=== PATIENT | male | born 1930 | race Caucasian/White ===

== ENCOUNTER 2017-05-06 21:03 | Observation (INO) | payer OTHER, MEDICARE ==
[~2017-05-06] VITALS: Ht 177.8 cm; Wt 73.5 kg
[~2017-05-06 21:03] MED LIST: AZOR 5 MG-40 MG1 TAB PO; CLOPIDOGREL75 MG PO; ETHAMBUTOL HCL400 MG PO; FINASTERIDE5 MG PO; ISONIAZID300 MG PO; ISTALOL 2.5 ML2.5 ML OPH; LATANOPROST 2.2.5 ML OPH; LOVENOX 8080 MG/0.8 SC; METOPROLOL SUCC50 MG PO; PRADAXA150 MG PO; PYRAZINAMIDE 5500 MG PO; RIFAMPIN 300 MG PO; SPIRIVA 18 MCG18 MCG INH; Vitamin B6 PO; WARFARIN SOD5 MG PO; ZOCOR20 MG PO
--- NOTE | 2017-05-06 21:06 | ED SYNCOPE COMPLAINT ---
History of Present Illness General Chief Complaint: Syncope and Near-Syncope Stated Complaint: BIBA FOR NEAR-SYNCOPE Vital Signs & Intake/Output Vital Signs & Intake/Output Vital Signs Date Time Temp Pulse Resp B/P B/P Pulse O2 O2 Flow FiO2 Mean Ox Delivery Rate 05/06 2115 98.3 64 18 169/81 99 Room Air Allergies Coded Allergies: MDX - No Known Drug Allergies - Nkd (NO KNOWN DRUG ALLERGIES - NKDA) (01/26/15) Reconcile Medications AMLODIPINE BES/OLMESARTAN MED (Marjan 5-40 MG Tablet) 5 MG-40 MG TABLET 1 TAB PO DAILY HTN (Reported) DABIGATRAN ETEXILATE MESYLATE (Pradaxa) 150 MG CAPSULE 1 CAP PO DAILY ATRIAL FIBRILLATION (Reported) Latanoprost (Latanoprost 2.5 Ml) 0.005 % DROPS 1 GTT OPH DAILY GLAUCOMA ( Reported) Metoprolol Succinate 50 MG TAB.ER.24H 1.5 TAB PO DAILY HTN (Reported) Simvastatin (Zocor) 20 MG TAB 1 TAB PO DAILY CHOL (Reported) Timolol Maleate (Istalol 2.5 Ml) 0.5 % DROP.DAILY 1 GTT OPH DAILY GLAUCOMA ( Reported) Tiotropium [place] (Spiriva) 18 MCG CAP.W.DEV 1 CAP INH DAILY COPD (Reported) HPI: 86 yo gentleman felt syncopal in the car... couldn't drive. 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 History of MRSA: No History of VRE: No History of CDIFF: No Pneumonia Vaccine: 08/29/10 Influenza Vaccine: 08/29/14 Psychosocial History Who do you live with Patient/Self Services at Home None What is your primary language Peruvian Family History Family History, If Any: MOTHER FH: coronary artery disease FATHER FHx: myocardial infarction Relation not specified for: FH: inflammatory bowel disease FH: multiple myeloma Progress Plan of Care: Orders Procedure Date/time Status EKG 05/06 2108 Active XRY-PORTABLE CHEST XRAY 05/06 2107 Active TROPONIN LEVEL 05/06 2107 Active PARTIAL THROMBOPLASTIN TIME 05/06 2107 Active PROTHROMBIN TIME 05/06 2107 Active COMPREHENSIVE METABOLIC PANEL 05/06 2107 Active CBC WITHOUT DIFFERENTIAL 05/[address] HEAD WO IV CONTRAST 05/06 2107 Active Departure Departure Condition: Stable Referrals: ALMA OWEN DO (PCP/Family) Departure Forms: Customer Survey General Discharge Information
--- NOTE | 2017-05-06 21:15 | NUR ---
86 Y/O MALE BIBA FROM HOME FOR FEELING LIKE HE WAS GOING TO HAVE A SYNCOPAL EPISODE. PT DID NOT HAVE ANY SYCOPAL EPISODE AND STS HE DOES NOT HAVE ANY OTHR SYMPTOMS AND DENIES ANY CP, DIZZINESS OR SWEATS, JUST FEELS WEAK. ALEXANDER BURNETT AT BEDSIDE TO EVAL PT
--- NOTE | 2017-05-06 21:23 | ED CARDIAC/CP/PALPITATIONS ---
History of Present Illness General Chief Complaint: Syncope and Near-Syncope Stated Complaint: BIBA FOR NEAR-SYNCOPE Source: patient, family, EMS Exam Limitations: no limitations Reconcile Medications Amlodipine Bes/Olmesartan Med (Marjan 5-40 MG Tablet) 5 MG-40 MG TABLET 1 TAB PO DAILY HTN (Reported) Betaxolol HCl 0.5 % DROPS 1 DROP OP D GLAUCOMA (Reported) Dabigatran Etexilate Mesylate (Pradaxa 150 MG) 150 MG CAPSULE 1 CAP PO BID AFIB (Reported) Latanoprost 0.005 % DROPS 1 GTT OPH QPM GLAUCOMA (Reported) Metoprolol Succinate 100 MG TAB.ER.24H 1 TAB PO QPM HTN (Reported) Simvastatin (Simvastatin*) 20 MG TABLET 1 TAB PO QPM CHOLESTROL (Reported) Umeclidinium [place] (Incruse Ellipta) 62.5 MCG/ACTUATION BLST.W.DEV 1 PUFF PO D SOB (Reported) Triage Note: 86 Y/O MALE BIBA FROM HOME FOR FEELING LIKE HE WAS GOING TO HAVE A SYNCOPAL EPISODE. PT DID NOT HAVE ANY SYCOPAL EPISODE AND STS HE DOES NOT HAVE ANY OTHR SYMPTOMS AND DENIES ANY CP, DIZZINESS OR SWEATS, JUST FEELS WEAK. ALEXANDER BURNETT AT BEDSIDE TO [facility] PT Triage Nurses Notes Reviewed? yes Onset: Abrupt Duration: minute(s): Timing: single episode today Quality/Severity: moderate Activities at Onset: driving Prior Chest Pain/Card Workup: heart attack HPI: 86-year-old male with history of hypertension, CABG IN 1998, pacemaker placement in 2006, atrial fibrillation on Pradaxa presents to emergency department following a near syncopal episode. He states that today while driving he felt as though he may pass out suddenly and had to lime puller. He states that this lasted for about 10 minutes and gradually improved. His family member drove him the [place] at home and then he called an ambulance to be seen here. Presyncopal episode was not associated with lightheadedness, dizziness, visual changes, loss of vision, chest pain, dyspnea, diaphoresis. The patient sees railroad mechanic Dr. Gonzales, he was seen and evaluated last week for regular checkup which was within normal limits. The patient has had prior syncopal episodes, last occurrence about a year ago, at this times he had no prodromal symptoms. Patient states that for the past few days he has been feeling fatigue and weakness. He also has had myalgias for the past few weeks. The patient states that recently he had blood work with his primary care doctor which found borderline anemia and elevated kidney functions, is currently under further workup for these abnormal labs. (HORTENCIA FINK PA-C) Vital Signs & Intake/Output Vital Signs & Intake/Output ED Intake and Output 05/08 0000 05/07 1200 Intake Total Output Total Balance Patient 162 lb Weight Allergies Coded Allergies: No Known Allergies (05/07/17) (MARLENI TORRE,REGINA Lock) Past History Travel History Traveled to [place] past 21 day No Medical History Any Pertinent Medical History? 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 Yes (HORTENCIA FINK PA-C) Review of Systems Review of Systems Constitutional: Reports: see HPI. EENTM: Reports: no symptoms. Respiratory: Reports: no symptoms. Cardiovascular: Reports: see HPI. GI: Reports: no symptoms. Genitourinary: Reports: no symptoms. Musculoskeletal: Reports: see HPI. Skin: Reports: no symptoms. Neurological/Psychological: Reports: see HPI. Hematologic/Endocrine: Reports: no symptoms. Immunologic/Allergic: Reports: no symptoms. All Other Systems: Reviewed and Negative (HORTENCIA FINK PA-C) Physical Exam Physical Exam General Appearance: well developed/nourished, no apparent distress, alert, awake Head: atraumatic, normal appearance Eyes: Bilateral: normal appearance, EOMI. Ears, Nose, Throat: hearing grossly normal Neck: normal inspection, supple, full range of motion Respiratory: normal breath sounds, chest non-tender, no respiratory distress, lungs clear Cardiovascular: regular rate/rhythm Peripheral Pulses: 2+ radial (R), 2+ radial (L) Gastrointestinal: normal bowel sounds, soft, non-tender Back: normal inspection, normal range of motion Extremities: normal inspection, normal range of motion Neurologic/Psych: awake, alert, oriented x 3 Skin: intact, normal color, warm/dry Core Measures ACS in differential dx? Yes Severe Sepsis Present: No Septic Shock Present: No (DANAE PHILLIPS,HORTENCIA DE DIOS) Progress Differential Diagnosis: AMI, aortic dissection, atrial fibrillation, CHF/pulm edema, intracranial hemorrhage, pneumonia, pneumothorax, PSVT, pulmonary embolism, unstable angina, V-fib/V-Tach, electrolyte abnormality Diagnostic Imaging: Viewed by Me: CT Scan. Discussed w/RAD: CT Scan. Radiology Impression: PATIENT: JESUS MANUEL FARIAS PRESENT AGE: 86 PATIENT ACCOUNT NO: [id number] : 32 LOCATION: [facility] ORDERING PHYSICIAN: REGINA RAYGOZA MD SERVICE DATE: 05/06/17 EXAM TYPE: CAT - CT HEAD WO IV CONTRAST EXAMINATION: CT HEAD WITHOUT CONTRAST CLINICAL INFORMATION: Mental status change COMPARISON: None TECHNIQUE: Contiguous axial imaging was performed from the skull base to vertex without intravenous administration of contrast. DLP: 695 mGy-cm FINDINGS: There is no evidence of acute intracranial hemorrhage or territorial infarction. No abnormal mass effect or midline shift is seen. Monte to white matter differentiation is well preserved. No extra-axial fluid collections are identified. The ventricles are normal in size. There is no abnormal attenuation within the brain parenchyma. The osseous structures and soft tissues are normal. The mastoid air cells and visualized portions of the paranasal sinuses are well aerated. IMPRESSION: No acute intracranial pathology. DICTATED BY: SEAN NICHOLSON MD DATE/TIME DICTATED:07/15 CHAR PULLER:JOSÉ MIGUEL DATE/TIME TRANSCRIBED:05/06/172144 CONFIDENTIAL, DO NOT COPY WITHOUT APPROPRIATE AUTHORIZATION. <Electronically signed in Other Vendor System> SIGNED BY: SEAN NICHOLSON MD 05/06/172149 Initial ED EKG: atrial paced complexes, rate 62, left axis deviation, no ST elevation or depression Prior EKG: unchanged (DANAE PHILLIPS,HORTENCIA DE DIOS) Plan of Care: Orders Procedure Date/time Status Nothing by Mouth 05/07 B Active Saline Lock 05/[address] in observation 05/06 2335 Active Misc Message 05/06 2335 Active ED Holding Orders 05/06 2335 Active Vital Signs 05/06 2335 Active Code Status 05/06 2335 Active EKG 05/06 2108 Active TROPONIN LEVEL 05/06 2107 Complete PARTIAL THROMBOPLASTIN TIME 05/06 2107 Complete PROTHROMBIN TIME 05/06 2107 Complete COMPREHENSIVE METABOLIC PANEL 05/06 2107 Complete CBC WITHOUT DIFFERENTIAL 05/06 2107 Complete Laboratory Tests 05/06/172109: Anion Gap 12, Estimated GFR > 60, BUN/Creatinine Ratio 18.9, Glucose 101 H, Calcium 9.6, Total Bilirubin 0.4, AST 13 L, ALT 25, Alkaline Phosphatase 74, Troponin I < 0.01, Total Protein 7.0, Albumin 3.9, Globulin 3.1, Albumin/ Globulin Ratio 1.3, PT 14.3 H, INR 1.37 H, APTT 52 H, CBC w Diff NO MAN DIFF REQ, RBC 4.49 L, MCV 86.8, MCH 28.7, RDW 13.6, MPV 7.5, Gran % 58.9, Lymphocytes % 26.1, Monocytes % 11.8 H, Eosinophils % 2.7, Basophils % 0.5, Absolute Granulocytes 5.0, Absolute Lymphocytes 2.2, Absolute Monocytes 1.0 H, Absolute Eosinophils 0.2, Absolute Basophils 0, PUBS MCHC 33.1 First troponin is negative, EKG does not show signs of ischemia. Will obtain repeat labs and EKG to assess for possible cardiac event. Spoke with Dr. Gloria regarding patient. Patient will be admitted for observation given concerning history and present symptoms. Dr. Raygoza will speak with hospitalist regarding telemetry admission. Patient is requiring consistent telemetry monitoring, repeat labs, cardiology consult, premature discharge would be medically unsafe. (HORTENCIA FINK PA-C) Departure Departure Disposition: STILL A PATIENT Condition: Stable Clinical Impression Primary Impression: Pre-syncope Referrals: ALMA OWEN DO (PCP/Family) Departure Forms: Customer Survey General Discharge Information (HORTENCIA FINK PA-C) PA/HIRE CAR DRIVER Co-Sign Statement Statement: ED Attending supervision documentation- [x I saw and evaluated the patient. I have also reviewed all the pertinent lab results and diagnostic results. I agree with the findings and the plan of care as documented in the PA's/HIRE CAR DRIVER's documentation. [] I have reviewed the ED Record and agree with the PA's/HIRE CAR DRIVER's documentation. [] Additions or exceptions (if any) to the PAs/HIRE CAR DRIVER's note and plan are summarized below: [] (MARLENI TORRE,REGINA Lock) Critical Care Note Critical Care Note Critical Care Time: non-applicable (DANAE PHILLIPS,HORTENCIA DE DIOS) (Tylenol) Acetaminophen/ 1 TAB Q6 PRN 05/07 0015 AC Hydrocodone Bitart (Vicodin) Oxycodone/ 2 TAB Q6P PRN 05/07 0015 AC Acetaminophen (Percocet) Laboratory Tests 05/06/17 2110: Anion Gap 12, Estimated GFR > 60, BUN/Creatinine Ratio 18.9, Glucose 101 H, Calcium 9.6, Phosphorus 2.9, Magnesium 2.1, Total Bilirubin 0.4, AST 13 L, ALT 25, Alkaline Phosphatase 74, Troponin I < 0.01, Total Protein 7.0, Albumin 3.9, Globulin 3.1, Albumin/Globulin Ratio 1.3, TSH 1.960, PT 14.3 H, INR 1.37 H, APTT 52 H, CBC w Diff NO MAN DIFF REQ, RBC 4.49 L, MCV 86.8, MCH 28.7, RDW 13.6, MPV 7.5, Gran % 58.9, Lymphocytes % 26.1, Monocytes % 11.8 H, Eosinophils % 2.7, Basophils % 0.5, Absolute Granulocytes 5.0, Absolute Lymphocytes 2.2, Absolute Monocytes 1.0 H, Absolute Eosinophils 0.2, Absolute Basophils 0, PUBS MCHC 33.1 First troponin is negative, EKG does not show signs of ischemia. Spoke with Dr. Gloria regarding patient. Patient will be admitted for observation given concerning history and present symptoms. Dr. Raygoza will speak with hospitalist regarding telemetry admission. (HORTENCIA FINK PA-C) Diagnostic Imaging: Viewed by Me: CT Scan. Discussed w/RAD: CT Scan. Radiology Impression: PATIENT: JESUS MANUEL FARIAS PRESENT AGE: 86 PATIENT ACCOUNT NO: [id number] : 32 LOCATION: [facility] ORDERING PHYSICIAN: REGINA RAYGOZA MD SERVICE DATE: 05/06/17 EXAM TYPE: CAT - CT HEAD WO IV CONTRAST EXAMINATION: CT HEAD WITHOUT CONTRAST CLINICAL INFORMATION: Mental status change COMPARISON: None TECHNIQUE: Contiguous axial imaging was performed from the skull base to vertex without intravenous administration of contrast. DLP: 695 mGy-cm FINDINGS: There is no evidence of acute intracranial hemorrhage or territorial infarction. No abnormal mass effect or midline shift is seen. Monte to white matter differentiation is well preserved. No extra-axial fluid collections are identified. The ventricles are normal in size. There is no abnormal attenuation within the brain parenchyma. The osseous structures and soft tissues are normal. The mastoid air cells and visualized portions of the paranasal sinuses are well aerated. IMPRESSION: No acute intracranial pathology. DICTATED BY: SEAN NICHOLSON MD DATE/TIME DICTATED:07/15 CHAR PULLER:JOSÉ MIGUEL DATE/TIME TRANSCRIBED:05/06/172144 CONFIDENTIAL, DO NOT COPY WITHOUT APPROPRIATE AUTHORIZATION. <Electronically signed in Other Vendor System> SIGNED BY: SEAN NICHOLSON MD 05/06/172149 Initial ED EKG: atrial paced complexes, rate 62, left axis deviation, no ST elevation or depression Prior EKG: unchanged (HORTENCIA FINK PA-C) Departure Departure Disposition: STILL A PATIENT Condition: Stable Clinical Impression Primary Impression: Pre-syncope Referrals: ALMA OWEN DO (PCP/Family) Departure Forms: Customer Survey General Discharge Information (HORTENCIA FINK PA-C) PA/HIRE CAR DRIVER Co-Sign Statement Statement: ED Attending supervision documentation- [x I saw and evaluated the patient. I have also reviewed all the pertinent lab results and diagnostic results. I agree with the findings and the plan of care as documented in the PA's/HIRE CAR DRIVER's documentation. [] I have reviewed the ED Record and agree with the PA's/HIRE CAR DRIVER's documentation. [] Additions or exceptions (if any) to the PAs/HIRE CAR DRIVER's note and plan are summarized below: [] (MARLENI TORRE,REGINA Lock) Critical Care Note Critical Care Note Critical Care Time: non-applicable (HORTENCIA FINK PA-C)
[2017-05-06] MEDS ORDERED: PRADAXA150 M1 PO (21:25)
[2017-05-06] MEDS ORDERED: INCRUSE ELLI62.5 MCG PO (21:25)
[2017-05-06] MEDS ORDERED: AZOR 5-40 MG T1 EACH PO (21:26)
[2017-05-06] MEDS ORDERED: TIMOLOL MALEATE5 M4 OPH (21:26)
[2017-05-06] MEDS ORDERED: METOPROLOL SUC100 M2 PO (21:27)
[2017-05-06] MEDS ORDERED: SIMVASTATIN20 M2 PO (21:27)
[2017-05-06] MEDS ORDERED: LATANOPROST2.5 ML OPH (21:28)
[2017-05-06] MEDS ORDERED: BETAXOLOL HCL5 ML OP (21:29)
[2017-05-06 21:30] LABS: ABSOLUTE BASOPHIL COUNT 0 /CUMM (0.0-0.2); ABSOLUTE EOSINOPHIL COUNT 0.2 /CUMM (0.0-0.7); ABSOLUTE LYMPH COUNT 2.2 /CUMM (1.2-3.4); BASOPHIL % 0.5 % (0.0-2.0); EOSINOPHIL % 2.7 % (0-5); GRANULOCYTE % 58.9 % (42.2-75.2); MEAN CORPUSCULAR HGB 28.7 PG (27.0-31.0); MEAN CORPUSCULAR HGB CONC 33.1 G/DL (33.0-37.0); MEAN CORPUSCULAR VOLUME 86.8 FL (80.0-94.0); MEAN PLATELET VOLUME 7.5 FL (7.4-10.4); PLATELET COUNT 315 /CUMM (130-400); RBC DISTRIBUTION WIDTH 13.6 % (11.5-14.5); RED BLOOD CELL CT 4.49 /CUMM (4.70-6.10); WHITE BLOOD CELL COUNT 8.5 /CUMM (4.8-10.8)
--- NOTE | 2017-05-06 21:30 | NUR ---
PT LEFT FOR CAT SCAN
[2017-05-06 21:44] LABS: PT 14.3 SEC (9.4-12.5); PTT 52 SEC (25-37)
--- NOTE | 2017-05-06 21:50 | CT SCAN REPORT ---
EXAMINATION: CT HEAD WITHOUT CONTRAST CLINICAL INFORMATION: Mental status change COMPARISON: None TECHNIQUE: Contiguous axial imaging was performed from the skull base to vertex without intravenous administration of contrast. DLP: 695 mGy-cm FINDINGS: There is no evidence of acute intracranial hemorrhage or territorial infarction. No abnormal mass effect or midline shift is seen. Monte to white matter differentiation is well preserved. No extra-axial fluid collections are identified. The ventricles are normal in size. There is no abnormal attenuation within the brain parenchyma. The osseous structures and soft tissues are normal. The mastoid air cells and visualized portions of the paranasal sinuses are well aerated. IMPRESSION: No acute intracranial pathology.
--- NOTE | 2017-05-06 22:22 | RADIOLOGY REPORT ---
EXAMINATION: XR PORTABLE CHEST CLINICAL INFORMATION: Syncope COMPARISON: 02/20/2017 TECHNIQUE: Portable frontal view of the chest was obtained. FINDINGS: Dual chamber pacer device grossly intact. Evidence of previous cardiac surgery. No CHF. Heart size normal. Chronic changes right upper lobe appears similar consistent with sequela of old granulomatous disease. Appearance is similar to baseline going back to 2013. No acute superimposed process. IMPRESSION: No active chest disease.
--- NOTE | 2017-05-06 23:30 | NUR ---
DR HICKEY BEDSIDE FOR PT EVAL
--- NOTE | 2017-05-06 23:42 | NUR ---
JESUS MANUEL FARIAS Nurse Note by: ELMO KIRAN I agree with the OUTSIDE SALES MANAGER findings/evaluation of this patient's condition. Entered by: ELMO KIRAN Date: 05/06/17 Time: 9800
--- NOTE | 2017-05-07 00:32 | NUR ---
HOUSE STAFF AT BEDSIDE TO EVAL PT
--- NOTE | 2017-05-07 01:34 | NUR ---
PT AMBULATORY TO AND FROM BATHROOM. DENIES DIZZINESS/LIGHTHEADEDNESS/SOB. DENIES PAIN, DENIES PALPITATIONS. IS ATRIAL PACED HR 61 ON CM. VSS WILL CONTINUE TO MONITOR
--- NOTE | 2017-05-07 01:38 | History & Physical ---
ABAD VILLARREAL MD 05/07/17 0137: General Information and HPI MD Statement: I have seen and personally examined JESUS MANUEL FARIAS and documented this H&P. The patient is a 86 year old M who presented with a patient stated chief complaint of presyncope. Source of Information: patient, old records Exam Limitations: no limitations History of Present Illness: 86 year old male with a past medical history of coronary artery disease s/p CABG , pacemaker, hypertension, reactive TB (treated), peptic ulcer disease, and atrial fibrillation on pradaxa presents with chief complaint of presyncope. Patient states this evening he was driving with family when all of a sudden he felt like he was losing control of the vehicle, felt light headed and faint and pulled over. He denies any loss of consciousness, palpitations, chest pain, diaphoresis, nausea or any aura or other symptoms accompanying the presyncopal episode. Patient reports that he has had two episodes that felt similar in the past but progressed to a loss of consciousness including one in Dr. Billy ( cards) office a few years ago. Patient states he was well hydrated and ate today. Patient has a remote history of mild smoking, denies drinking and reports a good exercise tolerance, uses treadmill and gardens but complains of feeling fatigued afterwards. Allergies/Medications Allergies: Coded Allergies: No Known Allergies (05/07/17) Home Med list Amlodipine Bes/Olmesartan Med (Marjan 5-40 MG Tablet) 5 MG-40 MG TABLET 1 TAB PO DAILY HTN (Reported) Betaxolol HCl 0.5 % DROPS 1 DROP OP D GLAUCOMA (Reported) Dabigatran Etexilate Mesylate (Pradaxa 150 MG) 150 MG CAPSULE 1 CAP PO BID AFIB (Reported) Latanoprost 0.005 % DROPS 1 GTT OPH QPM GLAUCOMA (Reported) Metoprolol Succinate 100 MG TAB.ER.24H 1 TAB PO QPM HTN (Reported) Simvastatin (Simvastatin*) 20 MG TABLET 1 TAB PO QPM CHOLESTROL (Reported) Umeclidinium [place] (Incruse Ellipta) 62.5 MCG/ACTUATION BLST.W.DEV 1 PUFF PO D TB (Reported) Compliance With Home Meds: GOOD Past History Travel History Traveled to [place] past 21 day No Medical History Neurological: dizziness EENT: glaucoma, hearing loss Cardiovascular: AFIB, CAD, hypertension, hyperlipidemia Respiratory: reactive TB Gastrointestinal: peptic ulcer disease Hepatic: NONE Renal: NONE Musculoskeletal: NONE Psychiatric: NONE Endocrine: NONE Blood Disorders: NONE Cancer(s): NONE REGULATORY INTERN/Reproductive: NONE History of MRSA: No History of VRE: No History of CDIFF: No Surgical History Surgical History: CABG, 5 vessel disease 1999 pacemaker, 2006, left CEA ~2011, hernia repair Past Family/Social History Family History Relations & Conditions if any MOTHER FH: coronary artery disease FATHER FHx: myocardial infarction Relation not specified for: FH: inflammatory bowel disease FH: multiple myeloma Psychosocial History Services at Home: None ETOH Use: denies use Functional Ability ADLs Independent: dressing, eating, toileting, bathing. Ambulation: independent IADLs Independent: shopping, housework, finances, food prep, telephone, transportation , medication admin. Review of Systems Review of Systems Constitutional: Reports: malaise. EENTM: Reports: no symptoms. Cardiovascular: Reports: syncope. Denies: chest pain, orthopena, palpitations, peripheral edema. Respiratory: Denies: cough, orthopnea, short of breath, sputum production. GI: Reports: no symptoms. Genitourinary: Reports: no symptoms. Neurological/Psychological: Reports: no symptoms. Exam & Diagnostic Data Last 24 Hrs of Vital Signs/I&O Vital Signs Date Time Temp Pulse Resp B/P B/P Pulse O2 O2 Flow FiO2 Mean Ox Delivery Rate 05/07 0133 96.8 61 18 143/70 97 Room Air 05/06 2119 100 Room Air 05/06 2115 98.3 64 18 169/81 99 Room Air Intake & Output 05/07 0800 05/07 0000 05/06 1600 Intake Total Output Total Balance Patient 162 lb Weight Weight Reported by Patient Measurement Method Physical Exam General Appearance Alert, Oriented X3, Cooperative, No Acute Distress Skin No Rashes, No Breakdown Skin Temp/Moisture Exam: Warm/Dry HEENT Atraumatic, PERRLA, EOMI, Mucous Membr. moist/pink Neck Supple, No JVD, +2 Carotid Pulse wo Bruit Cardiovascular Regular Rate, Normal S1, Normal S2, No Murmurs Lungs Clear to Auscultation, Normal Air Movement Abdomen Normal Bowel Sounds, Soft, No Tenderness, No Masses Neurological Normal Speech, Strength at 5/5 X4 Ext, Normal Tone, Sensation Intact, Cranial Nerves 3-12 NL Extremities No Clubbing, No Cyanosis, No Edema, Normal Pulses, No Tenderness/ Swelling Vascular Normal Pulses, Pulses Symmetrical Last 24 Hrs of Labs/Don: Laboratory Tests 05/06/17 2110: Anion Gap 12, Estimated GFR > 60, BUN/Creatinine Ratio 18.9, Glucose 101 H, Calcium 9.6, Phosphorus 2.9, Magnesium 2.1, Total Bilirubin 0.4, AST 13 L, ALT 25, Alkaline Phosphatase 74, Troponin I < 0.01, Total Protein 7.0, Albumin 3.9, Globulin 3.1, Albumin/Globulin Ratio 1.3, TSH Pending, PT 14.3 H, INR 1.37 H, APTT 52 H, CBC w Diff NO MAN DIFF REQ, RBC 4.49 L, MCV 86.8, MCH 28.7, RDW 13.6, MPV 7.5, Gran % 58.9, Lymphocytes % 26.1, Monocytes % 11.8 H, Eosinophils % 2.7, Basophils % 0.5, Absolute Granulocytes 5.0, Absolute Lymphocytes 2.2, Absolute Monocytes 1.0 H, Absolute Eosinophils 0.2, Absolute Basophils 0, PUBS MCHC 33.1 Diagnostic Data EKG Results atrial paced complexed, left axis deviation, no st t changes Assessment/Plan Assessment: 86 year old male with a past medical history of coronary artery disease s/p CABG , pacemaker, hypertension, reactive TB (treated), peptic ulcer disease, and atrial fibrillation on pradaxa presents with chief complaint of presyncope. 1. Presyncope: ACS unlikely, no complaints of chest pain, arrythmia possible but rhythm currently paced, patient doesn't seem to be clinically hypovolemic, probably vasovagal. CT head negative, patient had left carotid endarterectomy. Observe on telemetry Serial troponins/EKG to rule out ACS Orthostatic vital signs Cardiology consultation Echocardiogram Consider pacemaker interrogation 2. CAD: Continue metoprolol succinate 100mg PO QD for rate control and pradaxa 150mg PO QD for anticoagulation 3. HTN: Continue norvasc 5mg/ and losartan 40mg PO QD 4. HLD: Simvastatin 20mg PO QD 5. Glaucoma: continue timolol and latanoprost gtts Heart healthy diet DVT ppx-on pradaxa Full code As Ranked By This Provider Problem List: 1. CAD (coronary artery disease) 2. Atrial fibrillation 3. Pre-syncope 4. Hypertension Core Measures/Miscellaneous Acute Coronary Syndrome ACS Diagnosis: No Cerebrovascular Accident CVA/TIA Diagnosis: No Congestive Heart Failure CHF Diagnosis: No VTE (View Protocol) VTE Risk Factors: Acute medical illness, Age > 40 [facility] prophylaxis d/t: No contraindications No VTE Pharm Prophylaxis d/t: No contraindications VTE Diagnosis: No VTE Type: NONE VTE Confirmed by (Test): NONE Sepsis (View Protocol) Severe Sepsis Present: No Septic Shock Septic Shock Present: No Miscellaneous Documentation Attending Case Discussed With: GEETHA GARCIA MD Primary Care Physician: ALMA OWEN DO Patient sees these Specialists cardiology Level of Patient Care: Telemetry C[place]AND JARVIS 05/07/17 0146: Resident Review Statement Resident Statement: examined this patient, discussed with continuous improvement intern, agreed with continuous improvement intern Other Findings: Patient is 86-year-old male with past medical history significant for CAD status post CABG in 1998, history of atrial fibrillation on PRADAXA status post pacemaker placement in 2006, remote history of reactivation of tuberculosis, hypertension, hyperlipidemia and previous episodes of syncope and came with chief complaint of near syncopal episode this evening. Patient endorses that he was driving his [place] and and felt dizziness and about to pass out but did not. He denied any chest pain, palpitations, headache, vision changes, nausea, vomiting, shortness of breath, numbness tingling in his extremities, any urinary or bowel complaints. He had good exercise capacity. He sees meter technician regularly and last visit was almost 2 months ago. His last pacemaker interrogation was last year but he was told at his meter technician's office that his pacemaker is working fine. He is compliant with all his medications. He admits that he was feeling mildly fatigued and weak lately. His oral intake is fine. Vital signs on admission were temperature 98.3, pulse 64, respiratory rate 18, blood pressure 169/81 and he was saturating 99% on room air. Labs were WBC 8.5, hemoglobin 12.9, hematocrit 39.0, platelets 315, INR 1.37, sodium 136, potassium 4.5, BUNs 17, creatinine 0.9, glucose 101, phosphorus 2.9, mag 2.1, troponin less than 0.01, Head CT and chest x-ray were normal EKG showed paced rhythm with no acute ST-T wave changes Physical examination Alert and oriented 3 Head atraumatic Neck supple Chest clear to auscultate Heart S1-S2 normal with no added sounds Abdomen soft with normal bowel sounds Extremities showed no edema, cyanosis Assessment and plan 86-year-old male with history of CAD status post CABG, hypertension, hyperlipidemia, atrial fibrillation status post pacemaker placement with 2 episodes of syncope in the past came with an episode of near-syncope. We will observe patient on telemetry floor for 24 hours and will take care for the following problems Problem list 1. Near-syncopal episode 2. Extensive cardiac history CAD status post CABG 3. History of hypertension 4. History of hyperlipidemia 5. History of atrial fibrillation Plan 1. We will monitor him on telemetry floor to rule out any arrhythmia as 2. We will check TSH, and reviewed repeat labs in a.m. 3. His initial set of troponin was negative we will trend troponin 6 hours along with EKG 4. Tobacco Buyer evaluation in a.m. 5. Echocardiogram in a.m. 6. Patient might need pacemaker interrogation 7. We'll check orthostatics 8. We will continue all his home medications. Patient is full code Pharmacological DVT prophylaxis Heart healthy diet RADHAGEETHA BENSON 05/07/17 0331: Attending MD Review Statement Attending Statement Attending MD Statement: examined this patient, discuss w/resident/PA/PLASTICS FABRICATOR OR WELDER, agreed w/resident/PA/PLASTICS FABRICATOR OR WELDER, reviewed EMR data (avail), reviewed images, amended to note Attending Assessment/Plan: CC: Almost passing out PMH: CAD S/P CABG, A. fib, bradycardia S/P pacemaker, HTN, HLD, S/P CEA on left side, Hx TB Patient came to ER for evaluation of almost passing out episode. Patient [place] train station with his when he all of a sudden felt that he was going to pass out, he had this strange feeling, but did not actually pass out, almost lost control on the wheels but then got control over the break. Later on he asked his to drive, he was feeling out of balance, they drove home and he was not feeling good so he came to ER. During this episode he had feared tingling feeling in bilateral upper extremities otherwise denies any chest pain, palpitations, loss of bladder or bowel control, actually passing out. He is compliant with all his medications and regular follow-up with meter technician, recently pacemaker was interrogated. He had similar episodes in the past when he was admitted for evaluation in 2015, another episode happened at meter technician office. At both occasions no specific cause was found and was told that he may have vasovagal. Vitals: Afebrile, HR 60s, RR 18, blood pressure 143/70, saturating well on room air. On exam: A O 3, cooperative, no acute distress, neck supple, JVD normal, no lymphadenopathy, mucosa moist, no focal neurological deficit, no dependent edema , no obvious skin rashes or inflammation CVS: S1-S2, RRR. RS: Clear to auscultate bilaterally. Abdomen: Soft, NT, ND, bowel sounds present. Labs: CBC, BMP, LFT, troponin unremarkable. EKG: Rhythm paced CXR: No active chest disease. CT head: No acute intracranial pathology. A and P 86-year-old gentleman presented ER after presyncopal episode. Given his extensive past medical history, He would benefit from telemetry observation to rule out any arrhythmias, acute coronary syndrome, orthostatic hypotension, interrogation of pacemaker. + Presyncope + History of CAD S/P CABG, A. fib, bradycardia S/P pacemaker, HTN, HLD, S/P CEA on left side - Place in observation on telemetry to rule out any arrhythmias - Continuous telemetry monitoring - Orthostatic vitals - 1 more set of EKG and troponin - Cardiology consult in a.m. - Transthoracic echocardiogram if okay with cardiology - Pacemaker interrogation if okay with cardiology - Check magnesium and replace if deficient - Continue all his home medications - DVT prophylaxis
--- NOTE | 2017-05-07 04:07 | NUR ---
EKG DONE AND SHOWN TO MD BLOOD DRAWN AND SENT TO LAB ([facility])
[2017-05-07 04:39] LABS: ABSOLUTE BASOPHIL COUNT 0 /CUMM (0.0-0.2); ABSOLUTE EOSINOPHIL COUNT 0.1 /CUMM (0.0-0.7); ABSOLUTE GRANULOCYTE CT 6.1 /CUMM (1.4-6.5); ABSOLUTE LYMPH COUNT 1.9 /CUMM (1.2-3.4); ABSOLUTE MONOCYTE COUNT 0.9 /CUMM (0.10-0.60); BASOPHIL % 0.3 % (0.0-2.0); EOSINOPHIL % 0.7 % (0-5); GRANULOCYTE % 68.1 % (42.2-75.2); HEMATOCRIT 38.8 % (42-52); MEAN CORPUSCULAR HGB CONC 33.3 G/DL (33.0-37.0); MEAN CORPUSCULAR VOLUME 87.1 FL (80.0-94.0); MEAN PLATELET VOLUME 7.3 FL (7.4-10.4); PLATELET COUNT 319 /CUMM (130-400); RBC DISTRIBUTION WIDTH 13.5 % (11.5-14.5); RED BLOOD CELL CT 4.45 /CUMM (4.70-6.10)
--- NOTE | 2017-05-07 05:39 | NUR ---
REBECA INITIATED AND ANDRIY.
--- NOTE | 2017-05-07 07:15 | NUR ---
ASSUMED CARE. RESTING ON HOSPITAL BED. AWARE HE IS AWAITING BED ON TELE. DENIES PAIN. PACED ON MONITOR. Informed waiting has been performed.
--- NOTE | 2017-05-07 07:18 | PN-Observation ---
See Addendum Observation Note Observation Note _ I have personally examined JESUS MANUEL FARIAS. him disposition is uncertain at this time. Before a determination can be made, he requires continued observation for the following reasons [ensure device interrogation, r/o ACS ]. Assessment/Plan Assessment: 86 year old male with a past medical history of coronary artery disease s/p CABG , pacemaker, hypertension, reactive TB (treated), peptic ulcer disease, and atrial fibrillation on pradaxa presents with chief complaint of presyncope. Vitals at the time of admission BP: 143/70, Pulse: 61, RR: 18, A/F, saturating 97% on RA. On physical exam, he is alert and oriented x3, cooperative and in NAD. HEENT revealed PERRLA, EOMI, moist mucous membranes. Neck was supple, no JVD, 2+ carotid pulse w/o bruit. Cardiovascular exam revealed normal S1, S2, no murmurs rubs or gallops, with pacemaker inserted sS/C on the left side of chest, with well healed strenotomy scar. Abdomen soft, non tender, neuro exam was grossly unremarkable. Examination of lower extremities revealed no edema. Labs pertinet for H&H 12.9/38.8, WBC: 8500, normal plaetlet count of [id number]. Serum chemisteries showed Na: 136, K: 4.5 BUN: 17, Cr: 0.9, Ca: 9.6, Ph: 2.9, trop < 0.01, and LFTs unremarkable. CXR: No active chest disease. Head CT: No acute intracranial pathology. He was placed under observation on Telelmetry to r/o arrythmias and for interrogation of his PM. Assessment and Plan: #Pre-syncope Most likely vasovagal, ACS r/o with trop and EKG remaining negative, and of not ehe recently had his PM interrogated ([address] Billy's office - reportedly everything was normal). Cardio consult with Dr. Dudley placed, will F/U recs. Patient can potentially be discharged, if recotrds form office are normal. #CAD s/p CABG and PCI - Continue Toprol XL 100mg daily, Losartan 100mg daily, Lipitor 20mg daily #Afib on Pradaxa - Continue pablo camden - DVT prophylaxis - Pradaxa - Diet - Heart healthy - Code Status - Full Code. Problem List: 1. Pre-syncope Subjective Follow-up For: - Pre-syncope - CAD s/p CABG and PCI - Afib on Pradaxa Complaints: no complaints Subjective: Patient seen and examined at bedside. He has no complaints. Currently denies chest pain, shortness of breath, dizziness, lightheadedness. Of note, his orthostats were negative this AM Review of Systems Constitutional: Denies: chills, fever, weakness. EENTM: Denies: visual changes. Cardiovascular: Denies: chest pain, orthopena, palpitations, peripheral edema. Respiratory: Denies: cough, hemoptysis, short of breath, sputum production, wheezing. Gastrointestinal: Denies: abdominal pain, constipation, diarrhea, nausea, vomiting. Genitourinary: Denies: frequency, hematuria. Musculoskeletal: Reports: no symptoms. Neurological/Psychological: Denies: headache, numbness, tingling, tremors. Objective Last 24 Hrs of Vital Signs/I&O Vital Signs Date Time Temp Pulse Resp B/P B/P Pulse O2 O2 Flow FiO2 Mean Ox Delivery Rate 05/07 0413 98.0 60 18 145/75 97 Room Air 05/07 0133 96.8 61 18 143/70 97 Room Air 05/06 2119 100 Room Air 05/06 2115 98.3 64 18 169/81 99 Room Air Intake & Output 05/07 0800 05/07 0000 05/06 1600 Intake Total Output Total Balance Patient 162 lb 162 lb Weight Weight Reported by Patient Measurement Method Physical Exam General Appearance: Alert, Oriented X3, Cooperative, No Acute Distress HEENT: Atraumatic, PERRLA, EOMI, Mucous Membr. moist/pink Neck: Supple, No JVD, No thryomegaly, +2 Carotid Pulse wo Bruit, No LAD Cardiovascular: Normal S1, Normal S2, No Murmurs Lungs: Clear to Auscultation, Normal Air Movement Abdomen: Normal Bowel Sounds, Soft, No Tenderness Neurological: Normal Speech, Strength at 5/5 X4 Ext, Normal Tone, Sensation Intact, Cranial Nerves 3-12 NL, Reflexes 2+ Extremities: No Clubbing, No Cyanosis, No Edema, Normal Pulses, No Tenderness/ Swelling Vascular: Normal Pulses, Pulses Symmetrical Sepsis Peripheral Pulse Exam: Normal Current Medications: Current Medications Sig/Dillon Start time Last Medication Dose Route Stop Time Status Admin Acetaminophen 650 MG Q6P PRN 05/07 15 AC PO Acetaminophen/ 1 TAB Q6 PRN 05/07 15 AC Hydrocodone Bitart PO Amlodipine Besylate 5 MG DAILY 05/07 1000 AC PO Atorvastatin Calcium 20 MG 1700 05/07 1700 AC PO Dabigatran 150 MG BID 05/07 1000 AC PO Losartan Potassium 100 MG DAILY 05/07 1000 AC PO Metoprolol Succinate 100 MG QPM 05/07 2200 AC PO Oxycodone/ 2 TAB Q6P PRN 05/07 001 AC Acetaminophen PO Last 24 Hrs of Labs/Mics: Laboratory Tests 05/07/17 0600: Sodium Cancelled, Potassium Cancelled, Chloride Cancelled, Carbon Dioxide Cancelled, Anion Gap Cancelled, BUN Cancelled, Creatinine Cancelled, BUN/ Creatinine Ratio Cancelled, CBC w Diff Cancelled, WBC Cancelled, RBC Cancelled, Hgb Cancelled, Hct Cancelled, MCV Cancelled, MCH Cancelled, RDW Cancelled, Plt Count Cancelled, MPV Cancelled, PUBS MCHC Cancelled 05/07/17 0419: Anion Gap 10, Estimated GFR > 60, BUN/Creatinine Ratio 18.8, Troponin I < 0.01, CBC w Diff NO MAN DIFF REQ, RBC 4.45 L, MCV 87.1, MCH 29.0, RDW 13.5, MPV 7.3 L, Gran % 68.1, Lymphocytes % 21.1, Monocytes % 9.8 H, Eosinophils % 0.7, Basophils % 0.3, Absolute Granulocytes 6.1, Absolute Lymphocytes 1.9, Absolute Monocytes 0.9 H, Absolute Eosinophils 0.1, Absolute Basophils 0, PUBS MCHC 33.3 05/07/17 0406: Sodium Cancelled, Potassium Cancelled, Chloride Cancelled, Carbon Dioxide Cancelled, Anion Gap Cancelled, BUN Cancelled, Creatinine Cancelled, BUN/ Creatinine Ratio Cancelled 05/06/170: Anion Gap 12, Estimated GFR > 60, BUN/Creatinine Ratio 18.9, Glucose 101 H, Calcium 9.6, Phosphorus 2.9, Magnesium 2.1, Total Bilirubin 0.4, AST 13 L, ALT 25, Alkaline Phosphatase 74, Troponin I < 0.01, Total Protein 7.0, Albumin 3.9, Globulin 3.1, Albumin/Globulin Ratio 1.3, TSH 1.960, PT 14.3 H, INR 1.37 H, APTT 52 H, CBC w Diff NO MAN DIFF REQ, RBC 4.49 L, MCV 86.8, MCH 28.7, RDW 13.6, MPV 7.5, Gran % 58.9, Lymphocytes % 26.1, Monocytes % 11.8 H, Eosinophils % 2.7, Basophils % 0.5, Absolute Granulocytes 5.0, Absolute Lymphocytes 2.2, Absolute Monocytes 1.0 H, Absolute Eosinophils 0.2, Absolute Basophils 0, PUBS MCHC 33.1
[2017-05-07 08:00] VITALS: BP 139/74
--- NOTE | 2017-05-07 08:00 | NUR ---
HOUSESTAFF AT BEDSIDE.
--- NOTE | 2017-05-07 09:37 | NUR ---
CARDIOLOGY AT BEDSIDE.
--- NOTE | 2017-05-07 10:48 | Cons- Cardiology ---
General Information and HPI Consulting Request Date of Consult: 05/07/17 Requested By: ALINA JOHNSON MD Reason for Consult: Near syncope Source of Information: patient, old records Exam Limitations: no limitations History of Present Illness: The patient is an 86-year-old gentleman with a past medical history of coronary artery disease (status post prior surgery), atrial fibrillation/sick sinus syndrome, status post pacemaker implantation, hypertension, hyperlipidemia as well as a prior left carotid endarterectomy. He presents to our hospital following a near syncopal episode. The patient states he was in his usual state of good health, driving, and felt a sudden onset of a vague, generalized unwell sensation. He recalls being unable to initially find a brake pedal. The sensation of unwellness persisted, and the patient is well states inks sensations of near syncope. There was mild and intermittent nausea with this. No true syncope had occurred, and the patient was able to continue driving for a short while. No focal neurological incisions were noted by the patient nor his , who was present during the event. There was no concurrent symptoms of palpitations nor dyspnea nor chest pain. The patient otherwise denies symptoms of chest pains palpitations nor dyspnea recently, prior to the current event. He states he is active, and describes performance of a proximally 4-6 METs of physical activity on a regular basis without difficulty. He does however recall prior episodes of syncope had occurred several years ago. On arrival to the emergency room, the patient was improved, and was noted to be in an atrial paced, ventricular sensed rhythm. No significant arrhythmias were noted on telemetry monitoring. No acute EKG changes were noted. The patient was initially mildly hypertensive. Orthostatic blood pressure changes were not recorded. Allergies/Medications Allergies: Coded Allergies: No Known Allergies (05/07/17) Home Med List: Amlodipine Bes/Olmesartan Med (Marjan 5-40 MG Tablet) 5 MG-40 MG TABLET 1 TAB PO DAILY HTN (Reported) Betaxolol HCl 0.5 % DROPS 1 DROP OP D GLAUCOMA (Reported) Dabigatran Etexilate Mesylate (Pradaxa 150 MG) 150 MG CAPSULE 1 CAP PO BID AFIB (Reported) Latanoprost 0.005 % DROPS 1 GTT OPH QPM GLAUCOMA (Reported) Metoprolol Succinate 100 MG TAB.ER.24H 1 TAB PO QPM HTN (Reported) Simvastatin (Simvastatin*) 20 MG TABLET 1 TAB PO QPM CHOLESTROL (Reported) Umeclidinium [place] (Incruse Ellipta) 62.5 MCG/ACTUATION BLST.W.DEV 1 PUFF PO D TB (Reported) Current Medications: Current Medications Sig/Dillon Start time Last Medication Dose Route Stop Time Status Admin Acetaminophen 650 MG Q6P PRN 05/07 0015 AC PO Acetaminophen/ 1 TAB Q6 PRN 05/07 0015 AC Hydrocodone Bitart PO Amlodipine Besylate 5 MG DAILY 05/07 1000 AC 05/07 PO 0945 Amlodipine Besylate 0 .STK-MED ONE 05/07 09 DC PO Atorvastatin Calcium 20 MG 1700 05/07 1700 AC PO Dabigatran 150 MG BID 05/07 1000 AC 05/07 PO 45 Losartan Potassium 100 MG DAILY 05/07 1000 AC 05/07 PO 0945 Metoprolol Succinate 100 MG QPM 05/07 2200 AC PO Oxycodone/ 2 TAB Q6P PRN 05/07 0015 AC Acetaminophen PO Review of Systems Review of Systems: The review of systems is negative for chest pains, palpitations nor lightheadedness. The remainder of the 14 point review of systems is noncontributory with the exception of above. 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 Ambulation: independent IADLs Independent: shopping, housework, finances, food prep, telephone, transportation , medication admin. Exam & Diagnostic Data Vital Signs and I&O Vital Signs Date Time Temp Pulse Resp B/P B/P Pulse O2 O2 Flow FiO2 Mean Ox Delivery Rate 05/07 945 97.0 67 20 143/71 07/10 0945 97.0 67 20 143/71 05/07 0944 67 143/71 05/07 0800 97.0 65 20 139/74 98 Room Air 05/07 0729 97.0 65 20 139/74 98 Room Air 05/07 0413 98.0 60 18 145/75 97 Room Air 05/07 0133 96.8 61 18 143/70 97 Room Air 05/06 2119 100 Room Air 05/06 2115 98.3 64 18 169/81 99 Room Air Intake & Output 05/07 1600 05/07 0800 05/07 0000 05/06 1600 05/06 0805/06 0000 Intake Total Output Total Balance Patient 162 lb 162 lb Weight Weight Reported by Patient Measurement Method Physical Exam: General: Nontoxic, no apparent distress. HEENT: Sclera and conjunctiva within normal limits, without xanthelasmas. Neck: Carotids 2+ without bruits. Respiratory: Clear to auscultation, air movement is good, without accessory respiratory muscle use. Heart: Regular rate and rhythm, without murmurs, without JVD. Abdomen: Soft, nontender, no masses, normoactive bowel sounds. Extremities: Without clubbing, cyanosis, without edema. Neuro: Nonfocal exam, strength, 5 out of 5 Skin: Within normal limits without lesions. Psych: Mood and affect: Normal Labs/Don Results: Laboratory Tests 05/07 05/07 05/07 0600 0419 0406 Chemistry Sodium (137 - 145 mmol/L) Cancelled 139 Cancelled Potassium (3.5 - 5.1 mmol/L) Cancelled 4.6 Cancelled Chloride (98 - 107 mmol/L) Cancelled 104 Cancelled Carbon Dioxide (22 - 30 mmol/L) Cancelled 25 Cancelled Anion Gap (5 - 16) Cancelled 10 Cancelled BUN (9 - 20 mg/dL) Cancelled 15 Cancelled Creatinine (0.7 - 1.2 mg/dL) Cancelled 0.8 Cancelled Estimated GFR (>60 ml/min) > 60 BUN/Creatinine Ratio (7 - 25 %) Cancelled 18.8 Cancelled Troponin I (<0.11 ng/ml) < 0.01 Hematology CBC w Diff Cancelled NO MAN DIFF REQ WBC (4.8 - 10.8 /CUMM) Cancelled 9.0 RBC (4.70 - 6.10 /CUMM) Cancelled 4.45 L Hgb (14.0 - 18.0 G/DL) Cancelled 12.9 L Hct (42 - 52 %) Cancelled 38.8 L MCV (80.0 - 94.0 FL) Cancelled 87.1 MCH (27.0 - 31.0 PG) Cancelled 29.0 RDW (11.5 - 14.5 %) Cancelled 13.5 Plt Count (130 - 400 /CUMM) Cancelled 319 MPV (7.4 - 10.4 FL) Cancelled 7.3 L Gran % (42.2 - 75.2 %) 68.1 Lymphocytes % (20.5 - 51.1 %) 21.1 Monocytes % (1.7 - 9.3 %) 9.8 H Eosinophils % (0 - 5 %) 0.7 Basophils % (0.0 - 2.0 %) 0.3 Absolute Granulocytes (1.4 - 6.5 /CUMM) 6.1 Absolute Lymphocytes (1.2 - 3.4 /CUMM) 1.9 Absolute Monocytes (0.10 - 0.60 /CUMM) 0.9 H Absolute Eosinophils (0.0 - 0.7 /CUMM) 0.1 Absolute Basophils (0.0 - 0.2 /CUMM) 0 PUBS MCHC (33.0 - 37.0 G/DL) Cancelled 33.3 05/06 2110 Chemistry Sodium (137 - 145 mmol/L) 136 L Potassium (3.5 - 5.1 mmol/L) 4.5 Chloride (98 - 107 mmol/L) 101 Carbon Dioxide (22 - 30 mmol/L) 24 Anion Gap (5 - 16) 12 BUN (9 - 20 mg/dL) 17 Creatinine (0.7 - 1.2 mg/dL) 0.9 Estimated GFR (>60 ml/min) > 60 BUN/Creatinine Ratio (7 - 25 %) 18.9 Glucose (65 - 99 mg/dL) 101 H Calcium (8.4 - 10.2 mg/dL) 9.6 Phosphorus (2.5 - 4.5 mg/dL) 2.9 Magnesium (1.6 - 2.3 mg/dL) 2.1 Total Bilirubin (0.2 - 1.3 mg/dL) 0.4 AST (17 - 59 U/L) 13 L ALT (21 - 72 U/L) 25 Alkaline Phosphatase (< 127 U/L) 74 Troponin I (<0.11 ng/ml) < 0.01 Total Protein (6.3 - 8.2 g/dL) 7.0 Albumin (3.5 - 5.0 g/dL) 3.9 Globulin (1.9 - 4.2 gm/dL) 3.1 Albumin/Globulin Ratio (1.1 - 2.2 %) 1.3 TSH (0.270 - 4.200 uIU/mL) 1.960 Coagulation PT (9.4 - 12.5 SEC) 14.3 H INR (0.90 - 1.17) 1.37 H APTT (25 - 37 SEC) 52 H Hematology CBC w Diff NO MAN DIFF REQ WBC (4.8 - 10.8 /CUMM) 8.5 RBC (4.70 - 6.10 /CUMM) 4.49 L Hgb (14.0 - 18.0 G/DL) 12.9 L Hct (42 - 52 %) 39.0 L MCV (80.0 - 94.0 FL) 86.8 MCH (27.0 - 31.0 PG) 28.7 RDW (11.5 - 14.5 %) 13.6 Plt Count (130 - 400 /CUMM) 315 MPV (7.4 - 10.4 FL) 7.5 Gran % (42.2 - 75.2 %) 58.9 Lymphocytes % (20.5 - 51.1 %) 26.1 Monocytes % (1.7 - 9.3 %) 11.8 H Eosinophils % (0 - 5 %) 2.7 Basophils % (0.0 - 2.0 %) 0.5 Absolute Granulocytes (1.4 - 6.5 /CUMM) 5.0 Absolute Lymphocytes (1.2 - 3.4 /CUMM) 2.2 Absolute Monocytes (0.10 - 0.60 /CUMM) 1.0 H Absolute Eosinophils (0.0 - 0.7 /CUMM) 0.2 Absolute Basophils (0.0 - 0.2 /CUMM) 0 PUBS MCHC (33.0 - 37.0 G/DL) 33.1 Assessment/Plan Assessment/Plan 86-year-old gentleman with a past medical history of coronary artery disease ( status post prior surgery), atrial fibrillation/sick sinus syndrome, status post pacemaker implantation, hypertension, hyperlipidemia as well as a prior left carotid endarterectomy. He presents to our hospital following a near syncopal episode. Near syncope: The event occurred while the patient was sitting. There is no sensation of palpitation; however, we may interrogate his pacemaker to evaluate for a possible recorded arrhythmia. If however was not noted on pacemaker interrogation, this does not completely exclude the possibility, as the arrhythmia rate may have occurred within programmed parameters. If no arrhythmias noted on telemetry interrogation, we may consider further outpatient monitoring. Orthostatic blood pressure changes should be checked. The patient will as well complete a rule out for myocardial infarction via serial troponin isoenzymes. We will attempt to ablate the patient, and if he is otherwise asymptomatic and not orthostatic, consideration for discharge to home with further outpatient follow-up and workup will be made. Coronary artery disease: Stable, we will continue to follow and maintain the current medication regimen. Paroxysmal atrial fibrillation: Stable, the patient will remain on anticoagulation. Pacemaker monitoring will be maintained. Thank you for allowing us to participate in the care of your patient. Please do not hesitate to contact us further with any questions. Sincerely, Chauncey Dudley MD [facility] Consult Acknowledgment - Thank you for your consult request.
--- NOTE | 2017-05-07 11:25 | NUR ---
CONTINUES TO AWAIT TELE BED. PT ON PHONE WITH . PROVIDED LUNCH. Informed waiting has been performed.
--- NOTE | 2017-05-07 12:13 | NUR ---
PT HAS ROOM ASSIGNMENT 180-1
--- NOTE | 2017-05-07 12:47 | NUR ---
REPORT TO KARINA WILSON ON [address].
--- NOTE | 2017-05-07 13:19 | NUR ---
PT TO FLOOR VIA STRETCHER WITH THIS RN AND TRANSPORT. ALL PAPERWORK AND BELONGIINGS SENT. CLINICAL STATUS UNCHANGED.
--- NOTE | 2017-05-07 14:09 | NUR ---
REC'D PT FROM ER. 23 HR OBSERVATION FOR SYNCOPE. PLACED ON TELE. NSR W PACEMAKER. RA LUNGS CLEAR. ALPS ON. A&OX3. NO C/O FROM PT. ORIENTED TO ROOM.
--- NOTE | 2017-05-07 14:13 | NUR ---
PT HAS B/L HEARING AIDS, BOTTOM PARTIAL DENTURES AND GLASSES.
--- NOTE | 2017-05-07 14:40 | Patient Discharge Instructions ---
Discharge Instructions General Discharge Information You were seen/treated for: - Pre-syncope Special Instructions: Please follow up with your primary care physician within one week of discharge. 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 within one week of discharge for pacemaker interrogationto evaluate for a possible recorded arrhythmia Diet Recommended Diet: Heart Healthy Activity Activity Self Limited: Yes Acute Coronary Syndrome Inclusion Criteria At DC or during hospital stay patient has or had the following: ACS DIAGNOSIS No Discharge Core Measures Meds if any: Prescribed or Continued at Discharge Meds if any: NOT Prescribed or Continued at Discharge Congestive Heart Failure Inclusion Criteria At DC or during hospital stay patient has or had the following: CHF DIAGNOSIS No Discharge Core Measures Meds if any: Prescribed or Continued at Discharge Meds if any: NOT Prescribed or Continued at Discharge Cerebrovascular accident Inclusion Criteria At DC or during hospital stay patient has or had the following: CVA/TIA Diagnosis No Discharge Core Measures Meds if any: Prescribed or Continued at Discharge Meds if any: NOT Prescribed or Continued at Discharge Venous thromboembolism Inclusion Criteria VTE Diagnosis No VTE Type NONE VTE Confirmed by (Test) NONE Discharge Core Measures - Per Current guidelines, there needs to be overlap - treatment for the first 5 days of Warfarin therapy. - If discharged on Warfarin prior to 5 days of - overlap therapy, the patient will need to be - assessed for post discharge needs including - *Post discharge parental anticoagulation - *Warfarin and/or parental anticoagulation education - *Follow up date to check INR post discharge At least 5 days overlap therapy as Inpatient No Meds if any: Prescribed or Continued at Discharge Note: Overlap Therapy is Warfarin and Anticoagulant Meds if any: NOT Prescribed or Continued at Discharge
[2017-05-07 15:17] VITALS: BP 132/66
== END 2017-05-07 16:30 ==
LOC: ERH 21:03 → ERHI 23:35 → ENRESERV 05-07 12:11 → ENTRNSPT 05-07 13:00 → EDTRNSPTSTS 05-07 13:14 → EDTRNSPT 05-07 13:14 → 1NO 05-07 13:22 → CMPTRNSPT 05-07 13:35 → 1NO 05-07 13:37 → ENPENDDIS 05-07 14:45 → 1NO 05-07 16:30
PROVIDERS: Internal Medicine; Pediatrics; ADMIT Internal Medicine
DX: R55 Syncope and collapse (principal); I10 Essential (primary) hypertension; E78.5 Hyperlipidemia, unspecified; K27.9 Peptic ulcer, site unspecified, unspecified as acute or chronic, without hemorrhage or perforation; I48.0 Paroxysmal atrial fibrillation; Z79.01 Long term (current) use of anticoagulants; I25.10 Atherosclerotic heart disease of native coronary artery without angina pectoris; Z95.1 Presence of aortocoronary bypass graft; Z95.0 Presence of cardiac pacemaker; H40.9 Unspecified glaucoma
CPT/HCPCS: 6020; 82436; 93005; 93010; G0378; J3490; J7508